=== PATIENT | female | born 1990 | race Caucasian/White ===

== ENCOUNTER 2022-09-25 23:14 | Emergency (ER) | payer OTHER ==
[~2022-09-25] VITALS: Ht 170.2 cm; Wt 82.7 kg
[2022-09-25 23:15] VITALS: BP 160/86; TEMP 96.8; O2SAT 98
[2022-09-26] MEDS ORDERED: IBUPROFEN 800 MG TAB PO ONE (01:55)
== END 2022-09-26 02:22 | disposition home or self-care (01) ==
LOC: M ED 23:14
DX: S93.431A Sprain of tibiofibular ligament of right ankle, initial encounter (principal); Z88.0 Allergy status to penicillin; Z88.1 Allergy status to other antibiotic agents; Z88.5 Allergy status to narcotic agent; Y92.009 Unspecified place in unspecified non-institutional (private) residence as the place of occurrence of the external cause

== ENCOUNTER → 2022-10-06 | Outpatient (CLI) | payer OTHER | LOC: M PLARAD 15:04 | PROVIDERS: ATTEND Student in an Organized Health Care Education/Training Program | DX: M25.571 Pain in right ankle and joints of right foot (principal) ==

== ENCOUNTER 2023-03-30 13:42 | Emergency (ER) | payer OTHER ==
[~2023-03-30] VITALS: Ht 170.2 cm; Wt 86.4 kg
[2023-03-30] MEDS: fentaNYL 100 MCG/2 ML INJECTION IV PRN (14:29)
[2023-03-30] MEDS: diazePAM 10MG/2ML SYRINGE IV ONE (14:30)
[2023-03-30] MEDS: KETOROLAC 30 MG/ML 1ML VIAL IV ONE (14:33)
[2023-03-30] MEDS ORDERED: AMPH1CAP5 (14:50)
[2023-03-30] MEDS ORDERED: CYCL-707 (14:50)
[2023-03-30] MEDS ORDERED: METH-1165 PO (16:04)
[2023-03-30] MEDS ORDERED: PERC5TAB12 PO (16:04)
[2023-03-30] MEDS ORDERED: KETO10TAB PO (16:04)
[2023-03-30 17:24] VITALS: BP 132/64; TEMP 97.6; O2SAT 98
== END 2023-03-30 17:26 | disposition home or self-care (01) ==
LOC: EDBD 13:42 → M ED 13:42
DX: S29.012A Strain of muscle and tendon of back wall of thorax, initial encounter (principal); X58.XXXA Exposure to other specified factors, initial encounter; Y92.009 Unspecified place in unspecified non-institutional (private) residence as the place of occurrence of the external cause; Y93.89 Activity, other specified; Y99.9 Unspecified external cause status; G89.29 Other chronic pain; M54.9 Dorsalgia, unspecified; Z88.0 Allergy status to penicillin; Z88.5 Allergy status to narcotic agent
CPT/HCPCS: 72125; 72128; 94760; 96374; 96375; 99284; J1885; J3010; J3360

== ENCOUNTER 2023-10-01 20:24 | Inpatient (IN) | payer OTHER ==
[~2023-10-01] VITALS: Ht 170.2 cm; Wt 90.9 kg
[~2023-10-01 20:24] MED LIST: AMPH1CAP5 PO; CYCL-707; KETO10TAB PO; METH-1165 PO; OXYC-517 PO; PERC5TAB12 PO; TIZA2TA PO
[2023-10-01] MEDS: LORazepam 0.5 MG TAB PO ONE (21:21)
[2023-10-01 21:30] LABS: HEMATOCRIT 42.3 % (36.0-47.0); HEMOGLOBIN 14.9 g/dl (12.0-15.5); MEAN CORPUSCULAR HEMOGLOBIN 31.8 pg (27.0-33.0); MEAN CORPUSCULAR HGB CONC 35.2 g/dl (32.0-36.5); MEAN CORPUSCULAR VOLUME 90.4 fl (80.0-96.0); PLATELET COUNT, AUTOMATED 201 10^3/uL (150-450); RED BLOOD COUNT 4.68 10^6/uL (4.00-5.40); WHITE BLOOD COUNT 9.7 10^3/uL (4.0-10.0)
[2023-10-01 21:52] LABS: BARBITURATES URINE NEGATIVE (NEGATIVE); COCAINE METABOLITE URINE NEGATIVE (NEGATIVE); METHADONE URINE NEGATIVE (NEGATIVE); OPIATES URINE NEGATIVE (NEGATIVE); PHENCYCLIDINE URINE NEGATIVE (NEGATIVE)
[2023-10-01 21:53] LABS: BENZODIAZEPINES URINE NEGATIVE (NEGATIVE); CANNABINOIDS URINE NEGATIVE (NEGATIVE)
[2023-10-01 21:54] LABS: ETHYL ALCOHOL (ETHANOL) 0.008 % (0.000-0.010)
[2023-10-01 21:56] LABS: ALBUMIN 4.4 G/DL (3.2-5.2); ALKALINE PHOSPHATASE 103 U/L (46-116); ALT/SGPT 15 U/L (7.0-40); AST/SGOT 14 U/L (<34); BILIRUBIN,DIRECT 0.2 MG/DL (<0.4); BILIRUBIN,TOTAL 0.7 MG/DL (0.3-1.2); BLOOD UREA NITROGEN 12 MG/DL (9-23); CALCIUM LEVEL 9.8 MG/DL (8.5-10.1); CARBON DIOXIDE LEVEL 21 MMOL/L (20-31); CHLORIDE LEVEL 112 MMOL/L (98-107); CREATININE FOR GFR 0.87 MG/DL (0.55-1.30); GLOMERULAR FILTRATION RATE > 60.0 (>60); GLUCOSE, FASTING 94 MG/DL (60-100); POTASSIUM SERUM 3.8 MMOL/L (3.5-5.1); SALICYLATE LEVEL < 3.0 MG/DL (<30); SODIUM LEVEL 140 MMOL/L (136-145); TOTAL PROTEIN 7.4 G/DL (5.7-8.2)
[2023-10-01 21:57] LABS: HCG, SERUM QUALITATIVE NEGATIVE (NEGATIVE)
[2023-10-01 21:58] LABS: THYROID STIMULATING HORMONE 0.854 uIU/ML (0.55-4.78)
[2023-10-01 22:18] LABS: AMPHETAMINES LEVEL URINE POSITIVE (NEGATIVE)
[2023-10-01] MEDS: oxyCODONE 5MG TAB PO ONE (23:03)
[2023-10-01] MEDS ORDERED: MOM 30ML SUSPENSION UDC PO PRN (23:35)
[2023-10-01] MEDS ORDERED: MAALOX 30 ML SUSP *UDC PO PRN (23:35)
[2023-10-01] MEDS ORDERED: ACETAMINOPHEN TAB 650MG DOSE (2X325MG) PO PRN (23:35)
[2023-10-02] MEDS ORDERED: FLUO-365 PO (00:56)
[2023-10-02] MEDS ORDERED: MIRA3350 PO (00:56)
[2023-10-02] MEDS ORDERED: NARC1SPR (00:56)
[2023-10-02] MEDS ORDERED: ADDE1TAB14 PO (00:56)
[2023-10-02] MEDS ORDERED: HOME MED LIST COMPLETE! XX SCH (01:00)
[2023-10-02 06:05] VITALS: BP 133/77; TEMP 97.2; O2SAT 99
[2023-10-02] MEDS: FLUoxetine 20MG CAP PO SCH (15:21)
[2023-10-02 17:35] VITALS: BP 135/85; TEMP 97.7; O2SAT 100
[2023-10-02] MEDS: diphenhydrAMINE 25MG CAP PO PRN (17:46)
[2023-10-02] MEDS: LORazepam 1 MG TAB PO ONE (18:27)
[2023-10-02] MEDS ORDERED: NALOXONE INJ 0.4MG/1ML VIAL IV PRN (19:00)
[2023-10-02] MEDS ORDERED: SENOKOT S TAB PO PRN (19:05)
[2023-10-02] MEDS: oxyCODONE 5MG TAB PO ONE (19:24)
[2023-10-02] MEDS: traZODone 50 MG TAB PO PRN (20:37)
[2023-10-02] MEDS: ACETAMINOPHEN 500 MG TAB PO SCH (20:37)
[2023-10-03] MEDS: oxyCODONE 5MG TAB PO PRN (04:25)
[2023-10-03 06:30] VITALS: BP 120/62; TEMP 86; O2SAT 94
[2023-10-03] MEDS: IBUPROFEN 400MG TAB PO SCH (08:23)
== END 2023-10-03 09:55 | disposition home or self-care (01) | DRG 882 ==
LOC: M ED 20:24 → M ED INP 23:34 → M PSY 10-02 02:26
PROVIDERS: ADMIT Psychiatry & Neurology Psychiatry; ATTEND Psychiatry & Neurology Psychiatry
DX: F43.23 Adjustment disorder with mixed anxiety and depressed mood (principal); F41.9 Anxiety disorder, unspecified; F12.90 Cannabis use, unspecified, uncomplicated; F90.9 Attention-deficit hyperactivity disorder, unspecified type; Z91.51 Personal history of suicidal behavior; Z56.0 Unemployment, unspecified; Z63.0 Problems in relationship with spouse or partner; Z79.899 Other long term (current) drug therapy; Z88.0 Allergy status to penicillin; Z88.1 Allergy status to other antibiotic agents; Z88.5 Allergy status to narcotic agent; Z91.018 Allergy to other foods

== ENCOUNTER → 2023-11-30 | Outpatient (CLI) | payer OTHER ==
[~2023-11-30] MED LIST changes: +ADDE1TAB14 PO; +FLUO-365 PO; +MIRA3350 PO; +NARC1SPR
== END ==
LOC: M PLAIMG 13:26
PROVIDERS: ATTEND Neurological Surgery
DX: M51.16 Intervertebral disc disorders with radiculopathy, lumbar region (principal); M47.26 Other spondylosis with radiculopathy, lumbar region; M48.061 Spinal stenosis, lumbar region without neurogenic claudication

== ENCOUNTER → 2024-03-26 | Outpatient (CLI) | payer OTHER ==
[2024-03-26 18:51] LABS: RHEUMATOID FACTOR QUANT 4.9 IU/ML (<14); THYROXINE (T4) 7.1 UG/DL (4.5-10.9)
[2024-03-26 18:52] LABS: FREE THYROXINE INDEX 2.4 % (1.3-4.8); T UPTAKE 34.2 % (22.5-37.0); THYROID STIMULATING HORMONE 1.028 uIU/ML (0.55-4.78)
[2024-03-26 18:53] LABS: FOLATE 14.9 NG/ML (>5.4)
== END ==
LOC: M PLALAB 15:44
PROVIDERS: ATTEND Psychiatry & Neurology Neurology
DX: E53.8 Deficiency of other specified B group vitamins (principal); E07.9 Disorder of thyroid, unspecified; E11.40 Type 2 diabetes mellitus with diabetic neuropathy, unspecified

== ENCOUNTER 2024-05-08 13:27 | Emergency (ER) | payer OTHER ==
[~2024-05-08] VITALS: Ht 170.2 cm; Wt 99.4 kg
[2024-05-08] MEDS: PERCOCET 5MG/325MG TAB PO ONE ×2 (15:12→19:40)
[2024-05-08 16:30] LABS: BASO % 0.2 % (0.0-1.0); EOS # 0.1 10^3/uL (0.0-0.5); EOS % 0.7 % (0.0-3.0); HEMATOCRIT 43.1 % (36.0-47.0); HEMOGLOBIN 14.9 g/dl (12.0-15.5); LYMPH # 2.6 10^3/uL (1.5-5.0); LYMPH % 31.8 % (24.0-44.0); MEAN CORPUSCULAR HEMOGLOBIN 31.6 pg (27.0-33.0); MEAN CORPUSCULAR HGB CONC 34.6 g/dl (32.0-36.5); MEAN CORPUSCULAR VOLUME 91.5 fl (80.0-96.0); MONO # 0.3 10^3/uL (0.0-0.8); NEUTROPHILS # 5.1 10^3/uL (1.5-8.5); NEUTROPHILS % 63.2 % (36.0-66.0); PLATELET COUNT, AUTOMATED 196 10^3/uL (150-450); RED BLOOD COUNT 4.71 10^6/uL (4.00-5.40); WHITE BLOOD COUNT 8.1 10^3/uL (4.0-10.0)
[2024-05-08 16:34] LABS: ERYTHROCYTE SEDIMENTATION RATE 2 mm/hr (0-20)
[2024-05-08 16:55] LABS: BLOOD UREA NITROGEN 10 MG/DL (9-23); C REACTIVE PROTEIN QUANTITATIV < 0.50 MG/DL (<1.0); CALCIUM LEVEL 7.4 MG/DL (8.5-10.1); CARBON DIOXIDE LEVEL 23 MMOL/L (20-31); CHLORIDE LEVEL 113 MMOL/L (98-107); CREATININE FOR GFR 0.64 MG/DL (0.55-1.30); GLOMERULAR FILTRATION RATE > 60.0 (>60); GLUCOSE, FASTING 88 MG/DL (60-100); POTASSIUM SERUM 3.7 MMOL/L (3.5-5.1); SODIUM LEVEL 143 MMOL/L (136-145)
[2024-05-08] MEDS ORDERED: PROHANCE 279.3MG/ML 15ML VIAL As Ordered ONE (18:21)
[2024-05-08] MEDS ORDERED: PROHANCE 279.3MG/ML 5ML VIAL As Ordered ONE (18:21)
[2024-05-08 20:01] VITALS: BP 136/84; TEMP 97
[2024-05-08 21:16] VITALS: O2SAT 99
[2024-05-08] MEDS: OXYCODONE/APAP 5MG/325MG(HOME DOSE PACK) PO ONE (22:22)
== END 2024-05-08 22:24 | disposition home or self-care (01) ==
LOC: M ED 13:27
DX: M51.26 Other intervertebral disc displacement, lumbar region (principal); F90.9 Attention-deficit hyperactivity disorder, unspecified type; Q07.00 Arnold-Chiari syndrome without spina bifida or hydrocephalus; F17.200 Nicotine dependence, unspecified, uncomplicated; Z79.899 Other long term (current) drug therapy; Z88.0 Allergy status to penicillin; Z88.5 Allergy status to narcotic agent; Z88.8 Allergy status to other drugs, medicaments and biological substances; Z91.018 Allergy to other foods
CPT/HCPCS: 72148; 72156; 80048; 85025; 85652; 86140; 99284; A9576